=== PATIENT | female | born 1995 | race Hispanic/Latino ===

== ENCOUNTER 2018-08-16 21:56 | Emergency (ER) | payer OTHER ==
[~2018-08-16] VITALS: Ht 152.4 cm; Wt 63.6 kg
[2018-08-16] MEDS ORDERED: SUCRALFATE 1 GM TAB PO ONE (23:00)
[2018-08-16] MEDS ORDERED: ONDANSETRON 4MG/2ML VIAL (J2405) IV ONE (23:00)
[2018-08-16] MEDS ORDERED: GI COCKTAIL 50ML BTL(HYOSCYAMINE/MAALOX/LIDOCAINE VISCOUS)(1:3:1) PO ONE (23:00)
[2018-08-16] MEDS ORDERED: PANTOPRAZOLE 40MG INJ (PROTONIX) (C9113) IV ONE (23:00)
[2018-08-16] MEDS ORDERED: NS 1,000 ML IV ONE (23:00)
[2018-08-16 23:31] LABS: BASO % 0.3 % (0.0-1.0); EOS # 0.1 10^3/uL (0.0-0.50); EOS % 0.5 % (0.0-3.0); HEMATOCRIT 43.1 % (36.0-47.0); HEMOGLOBIN 13.8 g/dl (12.0-15.5); LYMPH # 1.9 10^3/uL (1.5-6.5); LYMPH % 14.6 % (24.0-44.0); MEAN CORPUSCULAR HEMOGLOBIN 29.5 pg (27.0-33.0); MEAN CORPUSCULAR VOLUME 92.1 fl (80.0-96.0); MONO # 0.7 10^3/uL (0.0-0.8); MONO % 5.7 % (0.0-5.0); NEUTROPHILS # 10.2 10^3/uL (1.8-7.7); NEUTROPHILS % 78.4 % (36.0-66.0); PLATELET COUNT, AUTOMATED 243 10^3/uL (150-450); RED BLOOD COUNT 4.68 10^6/uL (4.00-5.40)
[2018-08-16 23:56] LABS: ALT/SGPT 53 U/L (12-78); BILIRUBIN,DIRECT 0.3 MG/DL (0.0-0.2); BILIRUBIN,TOTAL 0.5 MG/DL (0.2-1.0); BLOOD UREA NITROGEN 14 MG/DL (7-18); CALCIUM LEVEL 9.1 MG/DL (8.5-10.1); CARBON DIOXIDE LEVEL 29 MEQ/L (21-32); CHLORIDE LEVEL 105 MEQ/L (98-107); CREATININE FOR GFR 0.95 MG/DL (0.55-1.30); GLOMERULAR FILTRATION RATE > 60.0 (>60); GLUCOSE, FASTING 90 MG/DL (70-100); LIPASE 103 U/L (73-393); SODIUM LEVEL 141 MEQ/L (136-145); TOTAL PROTEIN 7.6 GM/DL (6.4-8.2)
--- NOTE | 2018-08-17 01:19 | REPVR ---
EXAM: US Abdomen Limited, Right Upper Quadrant EXAM DATE/TIME: 08/17/2018 12:48 AM CLINICAL HISTORY: 23 years old, female; Abdominal pain; Epigastric; Additional info: Elev lfts, epigastric pain TECHNIQUE: Imaging protocol: Real-time ultrasound of the abdomen with image documentation. Examination was focused on the right upper quadrant. COMPARISON: No relevant prior studies available. FINDINGS: Liver: Unremarkable. Gallbladder: Cholelithiasis without gallbladder wall thickening or pericholecystic fluid. Common bile duct: No stones. No ductal dilatation. Pancreas: Unremarkable as visualized. Right kidney: No mass. No definite stones. No hydronephrosis. IMPRESSION: Cholelithiasis without sonographic evidence of acute cholecystitis. Electronically signed by: Mario Del Rio On 08/17/2018 01:19:04 AM
--- NOTE | 2018-08-17 01:37 | REP ---
Clinical: Abdominal pain. Lower chest pain. Comparison: None . Technique: PA and lateral. Findings: The mediastinum and cardiac silhouette are normal. The lung flaherty are clear and without acute consolidation, effusion, or pneumothorax. The skeletal structures are intact and normal. Impression: 1. No acute cardiopulmonary process. Electronically Signed by Kolton Royal MD 08/17/2018 01:29 A
[2018-08-17] MEDS ORDERED: ZANTTAB PO (01:48)
[2018-08-17] MEDS ORDERED: CARA1TAB6 PO (01:48)
[2018-08-17] MEDS ORDERED: ZOFR4TAB16 PO (01:48)
[2018-08-17 01:49] VITALS: BP 107/57
== END 2018-08-17 01:56 | disposition home or self-care (01) ==
LOC: M ED 21:56
DX: K21.9 Gastro-esophageal reflux disease without esophagitis (principal); R10.13 Epigastric pain; K80.20 Calculus of gallbladder without cholecystitis without obstruction; J45.909 Unspecified asthma, uncomplicated; Z88.2 Allergy status to sulfonamides
CPT/HCPCS: 71046; 76705; 80048; 80076; 81001; 83690; 84702; 85025; 96374; 96375; 99284; C9113; J2405

== ENCOUNTER 2018-11-07 19:49 | Emergency (ER) | payer OTHER ==
[~2018-11-07] VITALS: Ht 152.4 cm; Wt 74.5 kg
[~2018-11-07 19:49] MED LIST: CARA1TAB6 PO; ZANT150T40 PO; ZOFR4TAB16 PO
[2018-11-07 21:53] LABS: BASO % 0.2 % (0.0-1.0); EOS % 0.2 % (0.0-3.0); HEMATOCRIT 36.8 % (36.0-47.0); HEMOGLOBIN 12.4 g/dl (12.0-15.5); LYMPH # 0.5 10^3/uL (1.5-5.0); LYMPH % 3.9 % (24.0-44.0); MEAN CORPUSCULAR HEMOGLOBIN 30.4 pg (27.0-33.0); MEAN CORPUSCULAR HGB CONC 33.7 g/dl (32.0-36.5); MEAN CORPUSCULAR VOLUME 90.2 fl (80.0-96.0); MONO # 0.6 10^3/uL (0.0-0.8); MONO % 4.4 % (0.0-5.0); NEUTROPHILS # 11.9 10^3/uL (1.5-8.5); NEUTROPHILS % 90.7 % (36.0-66.0); PLATELET COUNT, AUTOMATED 189 10^3/uL (150-450); RED BLOOD COUNT 4.08 10^6/uL (4.00-5.40); WHITE BLOOD COUNT 13.2 10^3/uL (4.0-10.0)
[2018-11-07 22:03] LABS: ALBUMIN 3.2 GM/DL (3.2-5.2); ALT/SGPT 19 U/L (12-78); BILIRUBIN,DIRECT < 0.1 MG/DL (0.0-0.2); BILIRUBIN,TOTAL 0.4 MG/DL (0.2-1.0); BLOOD UREA NITROGEN 7 MG/DL (7-18); CALCIUM LEVEL 9.4 MG/DL (8.5-10.1); CARBON DIOXIDE LEVEL 23 MEQ/L (21-32); CHLORIDE LEVEL 104 MEQ/L (98-107); CREATININE FOR GFR 0.66 MG/DL (0.55-1.30); GLOMERULAR FILTRATION RATE > 60.0 (>60); GLUCOSE, FASTING 94 MG/DL (70-100); LIPASE 85 U/L (73-393); POTASSIUM SERUM 4.2 MEQ/L (3.5-5.1); SODIUM LEVEL 136 MEQ/L (136-145)
[2018-11-07] MEDS ORDERED: NS 1,000 ML IV ONE (22:15)
[2018-11-07] MEDS ORDERED: ONDANSETRON 4MG/2ML VIAL (J2405) IV ONE (22:15)
[2018-11-07] MEDS ORDERED: ACETAMINOPHEN TAB 650MG DOSE (2X325MG) PO ONE (22:15)
[2018-11-08 00:40] VITALS: BP 98/55
[2018-11-08] MEDS ORDERED: AUGM875T28 PO (01:03)
[2018-11-08] MEDS ORDERED: AUGMENTIN 875 MG TAB PO ONE (01:15)
--- NOTE | 2018-11-08 07:53 | REP ---
Clinical: Cough and shortness of breath . Comparison: 08/16/2018 . Findings: The mediastinum and cardiac silhouette are stable and within normal limits for portable technique. The lung flaherty are clear without acute consolidation, effusion, or pneumothorax. Skeletal structures are intact. Impression: No acute cardiopulmonary process appreciated. Electronically Signed by Kolton Royal MD 11/08/2018 07:45 A
== END 2018-11-08 01:28 | disposition home or self-care (01) ==
LOC: M ED 19:49
DX: J20.9 Acute bronchitis, unspecified (principal); R19.7 Diarrhea, unspecified; J45.909 Unspecified asthma, uncomplicated; Z88.2 Allergy status to sulfonamides; Z33.1 Pregnant state, incidental
CPT/HCPCS: 71045; 80048; 80076; 81001; 83690; 85025; 87086; 96361; 96374; 99285; J2405

== ENCOUNTER 2019-04-30 05:27 | Inpatient (IN) | payer OTHER ==
[~2019-04-30] VITALS: Ht 152.4 cm; Wt 79.5 kg
[2019-04-30] VITALS (8 sets, daily range): BP systolic 104–127; BP diastolic 51–73
[~2019-04-30 05:27] MED LIST changes: +AUGM875T28 PO
[2019-04-30 06:37] LABS: HEMATOCRIT 38.3 % (36.0-47.0); HEMOGLOBIN 12.8 g/dl (12.0-15.5); MEAN CORPUSCULAR HEMOGLOBIN 30.9 pg (27.0-33.0); MEAN CORPUSCULAR HGB CONC 33.4 g/dl (32.0-36.5); MEAN CORPUSCULAR VOLUME 92.5 fl (80.0-96.0); PLATELET COUNT, AUTOMATED 248 10^3/uL (150-450); RED BLOOD COUNT 4.14 10^6/uL (4.00-5.40); WHITE BLOOD COUNT 13.2 10^3/uL (4.0-10.0)
[2019-04-30] MEDS ORDERED: VITA250T4 PO (06:38)
[2019-04-30] MEDS ORDERED: MULTTAB20 PO (06:38)
[2019-04-30] MEDS ORDERED: IRON27TA2 PO (06:38)
[2019-04-30] MEDS ORDERED: PHENYLephrine HCL 500 MCG/5 ML (100MCG/ML) SYRINGE (J2370) As Ordered ONE (06:45)
[2019-04-30] MEDS ORDERED: ePHEDrine SULFATE 25 MG/5 ML(5MG/ML) SYRINGE As Ordered ONE (06:45)
[2019-04-30] MEDS ORDERED: MORPHINE PRES-FREE INJ 10 MG/10 ML VIAL (J2274) As Ordered ONE (06:46)
[2019-04-30] MEDS ORDERED: OXYTOCIN INJ 10 UNITS/ML VIAL (J2590) As Ordered ONE (06:46)
[2019-04-30] MEDS: LR 1,000 ML IV SCH ×2 (08:00→17:18)
[2019-04-30] MEDS ORDERED: BICITRA 30ML SOLN UDC PO ONE (08:30)
[2019-04-30] MEDS ORDERED: LACTATED RINGER'S 1000 ML IV ONE (08:30)
[2019-04-30] MEDS ORDERED: ceFAZolin SOD 2 GM in IV 1 EA IV ONE (08:30)
[2019-04-30] MEDS ORDERED: ONDANSETRON 4MG/2ML VIAL (J2405) As Ordered ONE (09:31)
[2019-04-30] MEDS ORDERED: dexameTHASONE 4 MG/ML 1ML VIAL (J1100) As Ordered ONE (09:31)
[2019-04-30] MEDS ORDERED: ONDANSETRON 4MG/2ML VIAL (J2405) IV PRN ×3 (10:00→12:00)
[2019-04-30] MEDS ORDERED: METOCLOPRAMIDE INJ 10MG/2ML VIAL (J2765) IV PRN ×2 (10:00→12:00)
[2019-04-30] MEDS ORDERED: diphenhydrAMINE INJ 50MG/ML VIAL (J1200) IV PRN (10:00)
[2019-04-30] MEDS ORDERED: NALBUPHINE HCL 10 MG/ML AMP (J2300) IV PRN (10:00)
[2019-04-30] MEDS ORDERED: NALOXONE INJ 0.4 MG/1 ML VIAL (J2310) IV PRN ×2 (10:00)
[2019-04-30] MEDS ORDERED: LR 1,000 ML IV SCH ×2 (11:31→12:00)
[2019-04-30] MEDS ORDERED: RHOGAM 300 MCG (1500 IU) INJ (J2790) IM SCH (11:45)
[2019-04-30] MEDS ORDERED: METHYLERGONOVINE MALEATE 0.2 MG/ML VIAL (J2210) IM ONE (11:45)
[2019-04-30] MEDS ORDERED: PERCOCET 5MG/325MG TAB PO PRN ×3 (11:45→12:00)
[2019-04-30] MEDS ORDERED: MEASLES,MUMPS,RUBELLA VACCINE INJ (MMR-II) (90707) SC SCH (11:45)
[2019-04-30] MEDS ORDERED: fentaNYL 100 MCG/2 ML INJECTION (J3010) IV PRN (12:00)
[2019-04-30] MEDS ORDERED: OXYTOCIN 30 UNITS IN 0.9% NaCl 500ML IV BAG (J2590) As Ordered ONE (13:07)
[2019-04-30] MEDS ORDERED: OXYTOCIN DRIP 30 UNITS in IV 1 EA IV SCH (13:15)
[2019-04-30] MEDS: KETOROLAC 30 MG/ML VIAL (J1885) IV SCH ×2 (16:38→21:59)
[2019-04-30] MEDS: DOCUSATE SODIUM 100 MG CAP PO SCH (21:58)
--- NOTE | 2019-05-01 00:28 | RO ---
DATE OF PROCEDURE: 04/30/2019 SURGEON: Leeanne Culver MD [employer] SALESPERSON: Dr. Josi Iniguez CLINICAL SERVICE: Obstetrics INDICATION FOR OPERATION: Candie is a 23-year-old 2, now para 2-0-0-2 with a history of prior section that was for arrest of dilation. She is 39 weeks 1 day, and after counseling on the option of repeat versus a trial of labor, she declined trial of labor and elected for a repeat . PREOPERATIVE DIAGNOSIS: Cervantes intrauterine 39 weeks 1 day with history of prior section, declining trial of labor. POSTOPERATIVE DIAGNOSIS: Cervantes intrauterine 39 weeks 1 day with history of prior section, declining trial of labor. MATERIAL FORWARDED TO THE LAB FOR EXAMINATION: None. DESCRIPTION OF FINDINGS: Male infant in occiput anterior (OA) position. scores 9 and 9. Weight 8 pounds 1 ounce or 3650 grams. Normal appearing uterus, fallopian tubes and ovaries. There was dense scarring in the subcutaneous layer, and there was a small adhesion of the omentum to the anterior abdominal wall. INFECTION CLASSIFICATION: 2. ESTIMATED BLOOD LOSS: 600 mL. IV FLUIDS: 1600 mL lactated Ringer's. URINE OUTPUT: 300 mL. OPERATION PERFORMED: Repeat low transverse section. DESCRIPTION OF OPERATION: The patient was taken to the operating room after obtaining consent. She had reactive heart rate tracing prior. Spinal anesthesia was administered. Hernandez catheter and bilateral sequential compression devices were placed. She was prepped and draped in the normal sterile fashion in the dorsal supine position with a left lateral tilt. Time-out was performed to confirm patient name, date of , procedure and indication. The team was in agreement. Spinal anesthesia was found to be adequate using an Allis clamp. She received 2 grams of IV Ancef prophylactically. Pfannenstiel skin incision was made with a scalpel through the prior scar line, carried through to the underlying layer of fascia with the Bovie. Fascia was incised in the midline, and the incision was extended laterally with Smallwood scissors. Superior and inferior aspects of the fascial incision were grasped with Aaron clamps, elevated and the underlying rectus muscles were dissected off bluntly and sharply. There was dense scarring in each of these layers. Peritoneum was entered using Kellys and Kapil. Rectus muscles were in the midline. Peritoneal incision was extended superiorly and inferiorly with good visualization of the bladder. Bladder blade was inserted, and the vesicouterine peritoneum was identified, grasped with pickups and entered sharply with Metzenbaum scissors. Incision was extended laterally and bladder flap was created digitally. Bladder blade was reinserted and the lower uterine segment was scored in a transverse fashion with a scalpel. Uterus was entered bluntly, and the incision was extended with traction with clear amniotic fluid noted. Bladder blade was removed, and the 's head was elevated to the level of the incision. Fundal pressure was applied and head was delivered atraumatically in OA position. Anterior shoulder, posterior shoulder and corpus were delivered without difficulty. Nose and mouth were suctioned with bulb suction, the cord was clamped times two and cut. was handed off to the awaiting team. Placenta was removed with traction on the cord and uterine massage, and the uterus was exteriorized and cleared of all clot and debris. Uterine incision was repaired with #0 Vicryl suture in a running locking fashion and a second layer of #0 Monocryl was used to close the hysterotomy in an imbricating fashion. Uterine incision was inspected and hemostasis was noted. Posterior cul-de-sac was irrigated, and the uterus was returned to the abdomen. Reinspection of the hysterotomy site revealed no bleeding. Gutters were cleared of all clots. A small omental adhesion was taken down at that point from the anterior abdominal wall. Peritoneum was closed using #3-0 Vicryl suture in a running fashion. Fascia was reapproximated with #0 Vicryl suture in a running fashion. Subcutaneous tissue was copiously irrigated. Rusty's fascia was reapproximated using #3-0 Vicryl suture in a running fashion. Skin edges were reapproximated using three inverted interrupted stitches using #3-0 Vicryl suture followed by a running subcuticular stitch using #4-0 Monocryl suture. The incision was cleaned using a wet lap, dried with a dry lap. Steri-Strips were applied in the usual fashion, and an Optifoam dressing was applied over that. The vagina was cleared of all blood clot without active bleeding noted. Fundus was firm at U -2. All counts were correct times two. Procedure was without complications, and the patient tolerated the procedure well. She was taken to the recovery room on labor and delivery in stable condition. EPIFANIO
[2019-05-01 02:00] VITALS: BP 106/52
[2019-05-01] MEDS: KETOROLAC 30 MG/ML VIAL (J1885) IV SCH (04:18)
[2019-05-01 06:00] VITALS: BP 93/44
[2019-05-01 07:02] LABS: HEMATOCRIT 33.9 % (36.0-47.0); HEMOGLOBIN 11.3 g/dl (12.0-15.5); MEAN CORPUSCULAR HGB CONC 33.3 g/dl (32.0-36.5); MEAN CORPUSCULAR VOLUME 93.1 fl (80.0-96.0); PLATELET COUNT, AUTOMATED 211 10^3/uL (150-450); RED BLOOD COUNT 3.64 10^6/uL (4.00-5.40)
[2019-05-01] MEDS ORDERED: METHYLERGONOVINE MALEATE 0.2 MG/ML VIAL (J2210) As Ordered ONE (07:24)
--- NOTE | 2019-05-01 07:55 | IPNPDOC ---
Progress Note Date of Service: May 01, 2019 Day#: 1 Progress Note SUBJECT: Patient is a 23-year-old 2 now Para 2 status post repeat low transverse section postoperative day 1. She has been ambulating, voiding spontaneously without issue and tolerating regular diet. Breast feeding without issue. Reports lochia is like a normal period. Patient is ambulating well. Reports some cramping with . Denies any pain while lying and minimal pain when ambulating. OBJECTIVE: VITAL SIGNS: Within normal limits, afebrile. Alert and oriented times three. Breasts without erythema and nontender Breath sounds clear to auscultation. Heart rate: Regular rate and rhythm, no murmurs, rubs or gallops. Abdomen: Fundus firm at U-2. Soft, NTTP. Dressing clean, dry, and intact. Minimal lochia. Perineum intact. ASSESSMENT: Patient is a 23-year-old 2 now Para 2 status post repeat low transverse section postoperative day 1. Vitals within normal limits, afebrile, hemodynamically stable with no evidence of infection. PLAN: 1. Discharge to home today. 2. Tylenol and Motrin for pain. 3. Encourage breast feeding and ambulation. 4. Depo-Provera for contraception for now. VS, I&O, 24H, Fishbone Vital Signs/I&O Vital Signs Date Time Temp Pulse Resp B/P (MAP) Pulse Ox O2 Delivery O2 Flow Rate FiO2 05/01/19 06:00 98.2 60 16 93/44 (60) 95 Room Air I&O- Last 24 Hours up to 6 AM0 05/01/19 06:00 Intake Total 3270 ml Output Total 1900 ml Balance 1370 ml Laboratory Data 24H LABS Laboratory Tests 2 04/30/19 08:15: Serology Scanned Report Hepatitis B Testing 05/01/19 06:33: Nucleated Red Blood Cells % (auto) 0.0 CBC/BMP Laboratory Tests 05/01/19 06:33 Josi Iniguez MD May 01, 2019 07:55
[2019-05-01 10:00] VITALS: BP 115/53
[2019-05-01] MEDS: DOCUSATE SODIUM 100 MG CAP PO SCH ×2 (10:03→21:28)
[2019-05-01] MEDS: PRENATAL VITAMINS CHEWABLE TABLET PO SCH (10:03)
[2019-05-01] MEDS ORDERED: IBUPROFEN 800 MG TAB PO SCH (12:30)
[2019-05-01 14:00] VITALS: BP 111/53
--- NOTE | 2019-05-01 15:06 | IPN ---
DATE: 05/01/2019 This patient and have requested circumcision of their male . After discussing risks and benefits circumcision, the medical and nonmedical indications, penile block and aftercare, expressed understanding of penile block, aftercare and bleeding, signed the consent form. All questions were answered. We await clearance by the dry press operator.
[2019-05-01 18:00] VITALS: BP 116/56
[2019-05-01] MEDS: IBUPROFEN 800 MG TAB PO SCH (18:38)
[2019-05-01 21:58] VITALS: BP 102/53
[2019-05-02] MEDS: IBUPROFEN 800 MG TAB PO SCH ×2 (01:56→10:25)
[2019-05-02 02:00] VITALS: BP 111/53
[2019-05-02 05:56] VITALS: BP 107/57
[2019-05-02] MEDS ORDERED: IBUP80TA PO (07:16)
[2019-05-02] MEDS ORDERED: DOCU100C16 PO (07:16)
[2019-05-02] MEDS ORDERED: PERCOCET PO ×2 (07:16)
[2019-05-02] MEDS: PRENATAL VITAMINS CHEWABLE TABLET PO SCH (07:58)
[2019-05-02] MEDS: DOCUSATE SODIUM 100 MG CAP PO SCH (07:58)
--- NOTE | 2019-05-02 11:26 | IPNPDOC ---
Progress Note Date of Service: May 02, 2019 Day#: 2 Progress Note PPD 2/POD 2 SUBJECT: Candie is a 23yo [id number] s/p uncomplicated RLTCS on 04/30/19, doing well day # 2. She has been ambulating, voiding spontaneously without issue and tolerating regular diet. Breast feeding without issue. Reports lochia is like a normal period. No f/c/n/v/CP/SOB. Pain is well controlled. OBJECTIVE: VITAL SIGNS: Within normal limits, afebrile. Alert and oriented times three. Abdomen: Fundus firm at U-2. Soft, appropriately tender to palpation with no rebound/guarding. Optifoam dressing over pfannensteil incision is clean/dry/intact. No erythema. Extremities: no edema of BLE, no pain with palpation of calves Labs: pre-op H/H 12.8/38.3 post-op H/H 11.3/33.9 ASSESSMENT: Candie is a 23yo [id number] s/p uncomplicated RLTCS on 04/30/19, doing well day # 2. Vitals within normal limits, afebrile, hemodynamically stable with no evidence of infection. PLAN: 1. Discharge to home today. 2. Percocet and Motrin for pain. 3. Encourage breast feeding and ambulation. 4. Will address contraception at post-op visits 5. Follow up visit with Dr. Culver in 2 weeks 6. No heavy lifting and vaginal rest 6 weeks 7. Keep incision clean and dry, remove optifoam dressing and steri strips in 5 d ays 8. Return precautions discussed Dr. Leeanne Culver MD VS, I&O, 24H, Fishbone Vital Signs/I&O Vital Signs Date Time Temp Pulse Resp B/P (MAP) Pulse Ox O2 Delivery O2 Flow Rate FiO2 05/02/19 08:30 18 05/02/19 05:56 98.9 68 107/57 (74) 100 Room Air Leeanne Culver MD May 02, 2019 11:26
--- NOTE | 2019-05-02 11:29 | DS.PDOC ---
Discharge Summary General Date of Admission Apr 30, 2019 at 05:27 Date of Discharge May 02, 2019 Attending Physician: Leeanne Culver MD Discharge Summary PROCEDURES PERFORMED DURING STAY: repeat section ADMITTING DIAGNOSES: 1. Term SIUP with hx of prior , declining TOLAC DISCHARGE DIAGNOSES: 1. Term SIUP with hx of prior , declining TOLAC COMPLICATIONS/CHIEF COMPLAINT: History Of Prior Section. HISTORY OF PRESENT ILLNESS/HOSPITAL COURSE: Candie is a 23yo [id number] s/p uncomplicated RLTCS on 04/30/19, doing well day # 2. She had a benign course. At time of discharge, her vitals were within normal limits, she was afebrile, hemodynamically stable with no evidence of infection. DISCHARGE MEDICATIONS: Please see below. ALLERGIES: Please see below. PHYSICAL EXAMINATION ON DISCHARGE: VITAL SIGNS: Within normal limits, afebrile. Alert and oriented times three. Abdomen: Fundus firm at U-2. Soft, appropriately tender to palpation with no rebound/guarding. Optifoam dressing over pfannensteil incision is clean/dry/intact. No erythema. Extremities: no edema of BLE, no pain with palpation of calves LABORATORY DATA: Please see below. pre-op H/H 12.8/38.3 post-op H/H 11.3/33.9 DIET: regular DISPOSITION: home DISCHARGE PLAN/INSTRUCTIONS: 1. Discharge to home today. 2. Percocet and Motrin for pain. 3. Encourage breast feeding and ambulation. 4. Will address contraception at post-op visits 5. Follow up visit with Dr. Culver in 2 weeks 6. No heavy lifting and vaginal rest 6 weeks 7. Keep incision clean and dry, remove optifoam dressing and steri strips in 5 days 8. Return precautions discussed DISCHARGE CONDITION: Stable TIME SPENT ON DISCHARGE: Greater than [address] Leeanne Culver MD Vital Signs/I&Os Vital Signs Date Time Temp Pulse Resp B/P (MAP) Pulse Ox O2 Delivery O2 Flow Rate FiO2 05/02/19 08:30 18 05/02/19 05:56 98.9 68 107/57 (74) 100 Room Air Discharge Medications Scheduled Ascorbic Acid (Vitamin C) 250 Mg Tablet, 1 TAB PO DAILY, (Reported) Docusate Sodium (Docusate Sodium) 100 Mg Capsule, 100 MG PO BID Ferrous Gluconate (Iron) 236 Mg Tablet, 1 TAB PO DAILY, (Reported) Ibuprofen (Ibuprofen) 800 Mg Tablet, 800 MG PO Q8H No122/Iron/Folic Acid ( Multi Tablet) 1 Each Tablet, 1 TAB PO DAILY, (Reported) Scheduled PRN Oxycodone/Acetaminophen (Oxycodone-Acetaminophen 5-325) 1 Each Tablet, 2 TAB PO Q6H PRN for SEVERE PAIN (PS 8-10) Oxycodone/Acetaminophen (Oxycodone-Acetaminophen 5-325) 1 Each Tablet, 1 TAB PO Q4H PRN for MILD/MODERATE PAIN (PS 1-7) Allergies Coded Allergies: Sulfa (Sulfonamide Antibiotics) (Verified Allergy, Intermediate, unknown, 08/16/18) Leeanne Culver MD May 02, 2019 11:29
--- NOTE | 2019-05-02 17:47 | DSES ---
DATE OF ADMISSION: 04/30/2019 DATE OF DISCHARGE: 05/02/2019 A 23-year-old 2, now para 2 admitted at 39 and one weeks of gestation for repeat section, delivered a live male infant, 8 pounds, 1 ounce, 3650 grams, scores of 9 and 9 at one and five minutes respectively. Her admitting hemoglobin was 12.8, hematocrit 38.3 and platelets were 248. Discharge hemoglobin 11.3, hematocrit 33.9 and platelets were 211. Her vital signs on discharge: Her blood pressure 107/57, respirations are 18, pulse 68, temperature is 98.9. We discussed phlebitis, cystitis, mastitis, endometritis and cellulitis, diet, exercise, pain management, perineal, breast and wound care. The rest of the examination is unremarkable. Normocephalic, atraumatic. Neck: Full range of motion. Pupils equal and reactive to light. Distal pulses are symmetric. No evidence of deep vein thrombosis (DVT), pulmonary embolism (PE) or superficial phlebitis. Chest is clear bilaterally to bases. No wheezes or rhonchi. No costovertebral angle (CVA) tenderness. Abdomen is soft. Uterus 2 below. Lochia is moderate. Four quadrant bowel sounds. Incision is clean and dry. She has no rashes, lesions or pruritus. No arthralgia or myalgia. No complaint of joint pain. No complaint of cough, wheezes, shortness of breath or dyspnea on exertion. No nausea, vomiting, diarrhea or constipation. In summary, we have a term gestation, elective repeat section, delivered a live male . Plans are breast feeding is going well, two-week incision check, six-week check. Medications were picked up at [facility].
== END 2019-05-02 11:55 | disposition home or self-care (01) | DRG 773 ==
LOC: M LDI 05:27 → M OBS 13:39
PROVIDERS: ADMIT Obstetrics & Gynecology; ATTEND Obstetrics & Gynecology
PROC: 10D00Z1 Extraction of Products of Conception, Low, Open Approach (ICD-10-PCS; principal; 2019-04-30)
DX: O34.211 Maternal care for low transverse scar from previous cesarean delivery (principal); Z37.0 Single live birth; Z3A.39 39 weeks gestation of pregnancy; Z88.2 Allergy status to sulfonamides; Z79.899 Other long term (current) drug therapy